=== PATIENT | female | born 1975 | race Caucasian/White ===

== ENCOUNTER → 2016-05-02 | Outpatient (CLI) | payer OTHER | LOC: FIMAGING 10:40 | DX: Z12.31 Encounter for screening mammogram for malignant neoplasm of breast (principal) | CPT/HCPCS: G0202 ==

== ENCOUNTER 2016-07-20 10:25 | Day surgery (SDC) | payer OTHER ==
--- NOTE | 2016-07-14 18:04 | GHP ---
[f rep st] PREOP HISTORY AND PHYSICAL DATE OF ADMISSION: 07/20/2016 SCHEDULED DAY OF SURGERY: 07/20/2016, at 12 p.m. SURGERY TO BE PERFORMED: Hysteroscopy, dilation, curettage, myomectomy with morcellator, and Minerv a endometrial ablation. PREOPERATIVE DIAGNOSES: Menometrorrhagia and submucosal fibroid. HISTORY OF PRESENT ILLNESS: The patient is a 40-year-old, 0, who has had a long-standing hi story of very heavy menstrual cycles that have been getting worse over time. She first presented to our office in 2013, complaining of heavy cycles, needing to wear a super tampon and change every ho ur for several days of her menstrual cycle and having moderate cramping. She was offered a Mirena I UD. She had failed control pills in the past, and she considered it at that time. She has mendez d a long-standing history of infertility and has undergone multiple attempts at IUI and other fertil ity options in the last several years, and she re-presented, in June 2016, with worsening periods aga in, including a recent 40-day episode of bleeding. Ultrasound was performed, and she has a large mi d lower intracavity submucosal fibroid, measuring 3.01 x 2.39 x 3.49 cm. She also has a small poste rior intramural fibroid, 1.7 x 1.8 x 2.2 cm. She had a simple cyst on her right ovary. Her left ov jessy was negative. There was no free fluid. Patient has now decided to forego childbearing. They a dopted a son, and she desires definitive management for her bleeding. We discussed surgical options of hysteroscopy, D and C with myomectomy, plus or minus an endometrial ablation, versus a total lap aroscopic hysterectomy, which would remove both fibroids and prevent further fibroids, however, be a bigger surgery and bigger recovery. She decided for now she wishes to go with a hysteroscopy, D an d C, myomectomy, and endometrial ablation, and she has failed multiple months of oral contraceptive pills since February, including with a 40-day bleed. PAST OBSTETRICAL HISTORY: Patient has no past obstetrical history. She has never been . PAST GYNECOLOGICAL HISTORY: Significant for infertility. She has had unexplained infertility. She has had several IUI attempts which have failed. She did not attempt IVF. She has a normal menstru al triad, menses at 14, 5 days of bleeding every 28 days, but her bleeding is extremely heavy, soaki ng a pad or a tampon every hour, and has most recently a 40-day episode of bleeding. She denies his tory of any abnormal Paps. Her most recent Pap was in March, which was negative. No history of any STDs. PAST MEDICAL HISTORY: She has no specific past medical history. She is anemic. Most recent blood count is 9.8 and hematocrit is 31.1. She is now on iron q. day. No other medical history. No surg ical history or hospitalizations. SOCIAL HISTORY: She is . She works as a parcel contractor. She denies tobacco, alcohol. Jennifer smith has moderate caffeine use and regular exercise. FAMILY HISTORY: Significant for a grandmother with cancer. Father with alcoholism. No other signi ficant family history. REVIEW OF SYSTEMS: A 10-point review of systems today is negative except for fatigue, secondary to anemia. No current bleeding. She has finally stopped. Other than that, no other symptoms. OBJECTIVE: VITAL SIGNS: Today she her blood pressure is 98/66, weight is 136. GENERAL: She is a well-developed, well-nourished white woman in no acute distress. LUNGS: Clear to auscultation bila terally. HEART: Regular rate and rhythm. No murmurs. ABDOMEN: Soft, nontender, nondistended. N ormal bowel sounds. PELVIC: Normal external genitalia. Normal nulliparous cervix. Uterus is antev erted, anteflexed, mildly tender. No masses. No adnexal masses are palpated. Patient underwent an endometrial biopsy, and results today showed mild proliferative endometrium, slightly irregular mat uration, no dysplasia or malignancy noted. ASSESSMENT AND PLAN: [id number] 1 with a large submucosal fibroid, menometrorrhagia , and failed oral contraceptive pills, desires surgical management with a hysteroscopy, D and C, patti mectomy, and Anel endometrial ablation. Patient was consented for the procedure today. She unde rstands the risks and benefits, the risks including bleeding, infection, damage to internal organs, damage to uterus, and possible risk of damage to other organs if perforation were to occur, risk of needing additional procedures, and not definitive treatment for her bleeding and recurrence of submu cosal fibroid later on in her life. She understands these risks and benefits and agreed to proceed. /[id number]/MODL
[~2016-07-20 10:25] MED LIST: ceFAZolin 2 GM/DEXTROSE 100 ML IV ONE
[2016-07-20] MEDS ORDERED: LR 1,000 ML IV ONE (11:03)
[2016-07-20] MEDS ORDERED: LIDOCAINE 1% 2 ML INJ ID PRN (11:03)
[2016-07-20] MEDS ORDERED: CEFAZOLIN 2 GM/DEXTROSE/100 ML BAG IV ONE (11:25)
[2016-07-20 11:35] LABS: % IMMATURE GRANULYOCYTES 0.2 % (0.0-1.1); ABSOLUTE IMMATURE GRANULOCYTES 0.01 10^3/uL (0.00-0.10); ADD DIFF? NO; ADD MORPH? NO; ADD SCAN? NO; ATYPICAL LYMPHOCYTE FLAG 0 (0-99); FRAGMENT RBC FLAG 0 (0-99); HEMATOCRIT 35.3 % (38.0-47.0); HEMOGLOBIN 11.3 g/dL (12.6-16.3); LEFT SHIFT FLG 0 (0-99); LIPEMIA HEMOLYSIS FLAG 80 (0-99); MEAN CELL HEMOGLOBIN 28.8 pg (27.9-34.1); MEAN CELL VOLUME 90.1 fL (81.5-99.8); MEAN PLATELET VOLUME 9.4 fL (8.7-11.7); PLATELET CLUMPS FLAG 10 (0-99); PLATELET COUNT 243 10^3/uL (150-400); RED BLOOD CELL COUNT 3.92 10^6/uL (4.18-5.33); RED CELL DISTRIBUTION WIDTH 15.5 % (11.5-15.2)
[2016-07-20] MEDS ORDERED: MIDAZOLAM 2 MG/2 ML VIAL IVP ONE (11:47)
--- NOTE | 2016-07-20 11:47 | PDANEPAE ---
ANE History of Present Illness abnormal uterine bleeding ANE Past Medical History - Cardiovascular History Hx Hypertension: No Hx Arrhythmias: No Hx Chest Pain: No Hx Coronary Artery / Peripheral Vascular Disease: No Hx CHF / Valvular Disease: No Hx Palpitations: No - Pulmonary History Hx COPD: No Hx Asthma/Reactive Airway Disease: No Hx Recent Upper Respiratory Infection: No Hx Oxygen in Use at Home: No - Neurologic History Hx Cerebrovascular Accident: No Hx Seizures: No Hx Dementia: No - Endocrine History Hx Diabetes: No - Renal History Hx Renal Disorders: No - Liver History Hx Hepatic Disorders: No - Neurological & Psychiatric Hx Hx Neurological and Psychiatric Disorders: No - Cancer History Hx Cancer: No - Congenital Disorder History Hx Congenital Disorders: No - GI History Hx Gastrointestinal Disorders: No - Chronic Pain History Chronic Pain: No ANE Review of Systems - Exercise capacity METS (RN): 4 METS ANE Patient History - Allergies Allergies/Adverse Reactions: No Known Allergies Allergy (Verified 07/07/16 16:12) - Home Medications Home Medications: Herbals/Supplements -Info Only 07/07/16 [Last Taken Unknown] Zoloft 50mg (*) 07/07/16 [Last Taken Unknown] - NPO status NPO Since - Liquids (Date): 07/20/16 NPO Since - Liquids (Time): 13:30 NPO Since - Solids (Date): 07/20/16 NPO Since - Solids (Time): 18:00 - Anes Hx Anes Hx: no prior problems, post operative nausea - Smoking Hx Smoking Status: Former smoker - Family Anes Hx Family Hx Anesthesia Complications: none ANE Labs/Vital Signs - Labs Result Diagrams: 07/20/16 10:51 07/20/16 10:51 - Vital Signs Blood Pressure: 107/73 Heart Rate: 70 Respiratory Rate: 16 O2 Sat (%): 99 Height: 170.18 cm Weight: 58.967 kg ANE Physical Exam - Airway Neck exam: FROM Mallampati Score: Class 1 Mouth exam: normal dental/mouth exam - Pulmonary Pulmonary: no respiratory distress - Cardiovascular Cardiovascular: regular rate and rhythym - ASA Status ASA Status: II ANE Anesthesia Plan Anesthesia Plan: GA w LMA
--- NOTE | 2016-07-20 12:05 | PDHPUP ---
History & Physical Update H&P update statement: This history and physical update is based on an assessment of the patient which was completed after admission or registration (within 24 hours), but prior to the surgery/procedure. H&P update: H&P reviewed & patient examined, no change in patient's condition since H&P completed
[2016-07-20 12:12] LABS: ALANINE AMINOTRANSFERASE 26 IU/L (9-52); ALBUMIN 4.1 g/dL (3.5-5.0); ALKALINE PHOSPHATASE 54 IU/L (38-126); ANION GAP 7 mEq/L (8-16); ASPARTATE AMINOTRANSFERASE 18 IU/L (14-46); BILIRUBIN,TOTAL 0.4 mg/dL (0.1-1.4); CALCIUM 9.4 mg/dL (8.5-10.4); CARBON DIOXIDE 22 mEq/l (22-31); CHLORIDE 108 mEq/L (97-110); CREATININE 0.9 mg/dL (0.6-1.0); GLOMERULAR FILTRATION RATE > 60; GLUCOSE 82 mg/dL (70-100); SODIUM 137 mEq/L (134-144); TOTAL PROTEIN 6.9 g/dL (6.3-8.2)
[2016-07-20] MEDS ORDERED: SILVER NITRATE APPLICATOR 1 APPL TP ONE (13:05)
--- NOTE | 2016-07-20 13:33 | POSTOPPROG ---
Post Op Note Date of Operation: 07/20/16 Surgeon: Joselyn Frausto Anesthesiologist: Remi Pineda MD Anesthesia: GET(General Endotracheal) Pre-op Diagnosis: menomenorrhagia, and submucosal fibroids Post-op Diagnosis: same Indication: menomenorrhagia and submucosal fibroids Procedure: Hysteroscopy D and C, myomectomy and Anel endometrial ablation Findings: uterus with numerous submucosal fibroids Inf/Abcess present in the surg proc area at time of surgery?: No Depth: Organ Space EBL: 100-500 Total fluids administered: 1200 Complications: uterine fluid deficit 1510 ml saline
[2016-07-20] MEDS ORDERED: PROMETHAZINE HCL 25 MG/ML INJ IVP PRN (13:34)
[2016-07-20] MEDS ORDERED: ONDANSETRON 4 MG/2 ML VIAL IVP PRN (13:34)
[2016-07-20] MEDS ORDERED: HYDROmorphONE/DILAUDID 1 MG/ML SYR IVP PRN (13:34)
[2016-07-20] MEDS ORDERED: LR 500 ML IV PRN (13:34)
[2016-07-20] MEDS ORDERED: OXYCODONE/APAP 5/325 TAB PO PRN (13:34)
[2016-07-20] MEDS ORDERED: ACETAMINOPHEN 500 MG TAB PO PRN (13:34)
[2016-07-20] MEDS ORDERED: ALBUTEROL 3 ML DEYVIAL IH PRN (13:34)
[2016-07-20] MEDS ORDERED: NALOXONE HCL 0.4 MG/ML INJ IVP PRN (13:34)
[2016-07-20] MEDS ORDERED: HYDROCODONE/APAP 5/325 TAB PO PRN (13:34)
--- NOTE | 2016-07-20 13:34 | POSTANESTH ---
Post Anesthetic Evaluation Cardiovascular Status: Normal, Stable Respiratory Status: Normal, Stable Level of Consciousness/Mental Status: Can Participate in Eval Pain Control: Adequate, Prn Tx Ordered Nausea/Vomiting Control: Adequate, Prn Tx Ordered Complications Possibly Related to Anesthesia: None Noted
[2016-07-20] MEDS ORDERED: fentaNYL 100 MCG/2 ML INJ ONE ×2 (14:00→14:56)
[2016-07-20] MEDS: fentaNYL 100 MCG/2 ML INJ IVP PRN ×2 (14:01→15:00)
[2016-07-20 14:29] VITALS: TEMP 97.3
[2016-07-20 14:41] VITALS: PULSE 59; RESP 16
--- NOTE | 2016-07-20 14:48 | GOP ---
[f rep st] OPERATIVE REPORT DATE OF OPERATION: 07/20/2016 SURGEON: Joselyn Frausto MD ANESTHESIA: General. ANESTHESIOLOGIST: Remi Pineda MD. PREOPERATIVE DIAGNOSIS: Menometrorrhagia and submucosal fibroids. POSTOPERATIVE DIAGNOSIS: Menometrorrhagia and submucosal fibroids. PROCEDURE PERFORMED: Hysteroscopy, dilation and curettage, myomectomy with morcellator, and Anel endometrial ablation. FINDINGS: INDICATIONS: The patient is a 40-year-old, 0 with a longstanding history of very heavy mens trual cycles that have gotten worse over time. She first presented complaining of heavy cycles, nee ding to wear a tampon and change every hour several days of her cycle, and also bleeding in the midd le of her cycle. She was started on oral contraceptive pills and then began having worsening bleedi ng; had a 40-day episode of bleeding. Ultrasound was performed. She had a large mid lower inner ca vity submucosal fibroid measuring 3 x 2.9 x 3.49 cm. She also had a small posterior intramural fibr oid. Patient had a longstanding history of infertility with multiple attempts at and proc edures. Has now decided to forego this and has gone with adoption, and she does not want future chi ld bearing. We discussed surgical options of hysteroscopy, d and C, myomectomy with morcellator, an d an endometrial ablation versus total laparoscopic hysterectomy. The patient is concerned about th e postoperative recovery time for a hysterectomy and [facility] and so she was consented for hysteroscopy, D and C, myomectomy, and endometrial ablation. e was consented for the procedure. She understood the risks and benefits. The risks, including ble eding, infection, damage to uterus (including possible risk of perforation), damage to other organs if perforation were to occur, risk of electrolyte imbalances and fluid problems, risk of inability t o complete the procedure, and need for additional procedures. She understood these risks and benefi ts and agreed to proceed. DESCRIPTION OF PROCEDURE: Patient was taken to the operating room where she was placed under genera l anesthesia without difficulty and prepped and draped in the dorsal lithotomy position. Patient mendez d previously drained her bladder. After a WHO time-out was performed, an open-sided speculum was pl aced in the vagina, and an atraumatic Perry tenaculum was used to grasp the anterior lip of the cer vix. The uterus sounded to 9 cm, and the cervix sounded to 4. The cervix was then progressively di lated with Sandoval dilators to a #9. The obturator was gently advanced from the cervix to the fundus. The operative hysteroscope was placed through the obturator, and visualization of the cavity was p erformed. There was a large submucosal fibroid obstructing the view from the hysteroscope of the en dometrial cavity, and we were not able to view around it to view the fundus or the tubal ostia. The fibroid blade morcellator was then advanced through the operative channel of the hysteroscope. Win wilda-lock was performed, and myomectomy was performed under direct visualization with care to emphasi ze dissection along the anterior margin of the uterus where the fibroid was on a stalk. After lots of dissection, the fibroid was loose in the uterine cavity off the stalk. I removed the hysteroscop e, placed polyp forceps into the cavity, and grasped the fibroid and removed it directly through the cervix. The hysteroscope was then replaced, and it was then difficult to get a seal for good visua lization. I used a single-tooth tenaculum on the lower lip of the cervix and was able to morcellate redundant tissue along the fundus and other fibroids. We were managing the fluid deficit closely w ith the fluid management system, and at a deficit of 1600, we stopped dissection and got a picture o f a relatively clear cavity. The hysteroscope was then removed. The Anel device was seated at t he fundus, and the balloon was used to achieve a good seal at the cervix and at the fundus. Cavity assessment was passed, and endometrial ablation took place over 90 seconds. The ablation device was then removed again, and hysteroscope was placed one more time for visualization. There was a good burn in the cavity and no further obvious fibroids seen. The scope was removed. The tenacula were removed. There was a small area of bleeding along the posterior margin that was cauterized with jesusita kristyn nitrate, and speculum was removed. Patient tolerated the procedure well. Sponge, lap, needle, and instrument counts were correct x2. Patient went to the recovery room in good condition. Estima juliann blood loss for the procedure was 200 cc. Fluid replacement was 1200 through the IV and 1510 thr ough the hysteroscope. Urine output was not measured. PATHOLOGIC SPECIMEN: Will be submucosal fibroid and endometrial curettings. /[id number]/MODL
[2016-07-20] MEDS ORDERED: HYDROCODONE/APAP 5/325 TAB ONE (14:55)
[2016-07-20 15:16] VITALS: BP 107/69; O2SAT 94
== END 2016-07-20 15:30 | disposition home or self-care (01) ==
LOC: FSGY 10:25
PROVIDERS: ATTEND Obstetrics & Gynecology
PROC: 0U5B8ZZ Destruction of Endometrium, Via Natural or Artificial Opening Endoscopic (ICD-10-PCS; principal; 2016-07-20 12:00)
DX: N92.1 Excessive and frequent menstruation with irregular cycle (principal); D25.0 Submucous leiomyoma of uterus; D25.1 Intramural leiomyoma of uterus; N83.201 Unspecified ovarian cyst, right side; N97.9 Female infertility, unspecified; D50.0 Iron deficiency anemia secondary to blood loss (chronic)
CPT/HCPCS: 58563; C1782; J0690; J2250; J3010